=== PATIENT | female | born 1995 | race Caucasian/White ===

== ENCOUNTER 2017-08-24 13:15 | Inpatient (IN) | payer OTHER ==
[~2017-08-24] VITALS: Ht 167.6 cm; Wt 68.0 kg
[2017-09-09] MEDS ORDERED: FOLIC ACID0.8 MG (14:14)
[2017-09-09] MEDS ORDERED: PNEU16DI2 (14:14)
[2017-09-09] MEDS ORDERED: FOLIC ACID1 MG (14:15)
[2017-09-09] MEDS ORDERED: PRENATAL TABLE1 EACH (14:16)
[2017-09-10] MEDS ORDERED: FERROUS SULFAT325 M1 PO (15:32)
[2017-09-10] MEDS ORDERED: HYDROCORTISO453.6 G1 RECTAL (15:33)
== END 2017-09-10 15:44 | disposition home or self-care (01) | DRG 774 ==
LOC: LDR 09-08 01:36 → OB/GYN 09-08 01:36
PROC: 10E0XZZ Delivery of Products of Conception, External Approach (ICD-10-PCS; principal; 2017-09-08)
PROC: 0W8NXZZ Division of Female Perineum, External Approach (ICD-10-PCS; 2017-09-08)
PROC: 10907ZC Drainage of Amniotic Fluid, Therapeutic from Products of Conception, Via Natural or Artificial Opening (ICD-10-PCS; 2017-09-08)
PROC: 4A1HXCZ Monitoring of Products of Conception, Cardiac Rate, External Approach (ICD-10-PCS; 2017-09-08)
DX: O98.82 Other maternal infectious and parasitic diseases complicating childbirth (principal); B95.1 Streptococcus, group B, as the cause of diseases classified elsewhere; Z3A.39 39 weeks gestation of pregnancy; Z37.0 Single live birth

== ENCOUNTER 2019-09-05 09:40 | Inpatient (IN) | payer OTHER ==
[~2019-09-05] VITALS: Ht 162.6 cm; Wt 74.8 kg
[~2019-09-05 09:40] MED LIST: FERROUS SULFAT325 M1 PO; FOLIC ACID0.8 MG; FOLIC ACID1 MG; HYDROCORTISO453.6 G1 RECTAL; PNEU16DI2; PRENATAL TABLE1 EACH
[2019-09-19] MEDS ORDERED: IRON325 MG PO ×2 (22:24→22:25)
[2019-09-19] MEDS ORDERED: PRENATAL TABLE1 EACH PO (22:25)
== END 2019-09-21 16:56 | disposition home or self-care (01) | DRG 807 ==
LOC: LDR 09-19 22:06 → OB/GYN 09-19 22:06
PROVIDERS: ADMIT Specialist; ATTEND Specialist
PROC: 10E0XZZ Delivery of Products of Conception, External Approach (ICD-10-PCS; principal; 2019-09-19)
PROC: 0HQ9XZZ Repair Perineum Skin, External Approach (ICD-10-PCS; 2019-09-19)
PROC: 4A1HXCZ Monitoring of Products of Conception, Cardiac Rate, External Approach (ICD-10-PCS; 2019-09-19)
DX: O70.0 First degree perineal laceration during delivery (principal); Z37.0 Single live birth; Z3A.38 38 weeks gestation of pregnancy